=== PATIENT | female | born 1975 | race Caucasian/White ===

== ENCOUNTER 2021-05-14 16:06 | Emergency (ER) | payer OTHER ==
[~2021-05-14] VITALS: Ht 157.4 cm; Wt 61.2 kg
== END 2021-05-14 21:06 | disposition home or self-care (01) ==
LOC: ED 16:06
DX: G43.909 Migraine, unspecified, not intractable, without status migrainosus (principal); Z88.8 Allergy status to other drugs, medicaments and biological substances

== ENCOUNTER → 2021-07-15 | Outpatient (CLI) | payer OTHER | END | disposition home or self-care (01) | LOC: COVID19 16:12 | PROVIDERS: ATTEND Student in an Organized Health Care Education/Training Program | DX: U07.1 COVID-19 (principal) ==

== ENCOUNTER 2023-09-18 19:07 | Emergency (ER) | payer OTHER ==
[~2023-09-18] VITALS: Ht 157.4 cm; Wt 72.6 kg
[2023-09-18] MEDS ORDERED: BUPROPION XL300 MG PO (19:16)
[2023-09-18] MEDS ORDERED: ESCITALOPRAM OX10 MG PO (19:16)
[2023-09-18] MEDS ORDERED: EMGALITY120 MG/1 M SQ (19:26)
[2023-09-18] MEDS ORDERED: REGLAN10 M1 PO (21:17)
== END 2023-09-18 22:06 | disposition home or self-care (01) ==
LOC: ED 19:07
DX: G43.909 Migraine, unspecified, not intractable, without status migrainosus (principal); R11.0 Nausea; F32.A Depression, unspecified; Z88.8 Allergy status to other drugs, medicaments and biological substances

== ENCOUNTER 2023-11-18 15:48 | Emergency (ER) | payer OTHER, BC ==
[~2023-11-18] VITALS: Ht 157.4 cm; Wt 77.1 kg
[~2023-11-18 15:48] MED LIST: BUPROPION XL300 MG PO; EMGALITY120 MG/1 M SQ; ESCITALOPRAM OX10 MG PO; REGLAN10 M1 PO
[2023-11-18 17:00] LABS: BASO # 0.1 10*3/uL (0.0-0.1); BASO % 0.6 % (0.0-1.0); EOS # 0.6 10*3/uL (0.0-0.4); EOS % 5.7 % (1.0-4.0); HEMATOCRIT 42.4 % (37.0-47.0); LYMPH # 3.7 10*3/uL (1.3-4.4); LYMPH % 35.5 % (27.0-41.0); MEAN CORPUSCULAR HGB 30.3 pg (27.0-31.0); MEAN CORPUSCULAR HGB CONC 32.5 g/dl (33.0-37.0); MEAN PLATELET VOLUME 9.6 fl (9.6-12.3); MONO # 1.2 10*3/uL (0.1-1.0); MONO % 11.3 % (3.0-9.0); NEUT # 4.8 10*3/uL (2.3-7.9); NEUT % 46.6 % (47.0-73.0); PLATELET COUNT AUTOMATED 363 10*3/uL (130-400); RED BLOOD COUNT 4.56 10*6/uL (4.10-5.10); RED CELL DISTRI WIDTH 12.1 % (0-14.5); WHITE BLOOD COUNT 10.3 10*3/uL (4.8-10.8)
[2023-11-18] MEDS ORDERED: Ondansetron Hydrochloride 4 MG/2 ML VIAL IV ONE (17:05)
[2023-11-18 17:11] LABS: ACT PARTIAL THROMBO TIME 27.2 SECONDS (20.0-32.1)
[2023-11-18 17:30] LABS: ALKALINE PHOSPHATASE 64 U/L (46-116); BUN 14 mg/dl (9-23); CHLORIDE 108 mmol/L (98-107); LIPASE 33 U/L (12-53); SGPT/ALT 41 U/L (5-49); TOTAL PROTEIN 7.4 gm/dL (6.0-8.0)
== END 2023-11-19 00:15 | disposition home or self-care (01) ==
LOC: ED 15:48
PROVIDERS: Internal Medicine
DX: T38.3X1A Poisoning by insulin and oral hypoglycemic [antidiabetic] drugs, accidental (unintentional), initial encounter (principal); G43.909 Migraine, unspecified, not intractable, without status migrainosus; F32.A Depression, unspecified; E11.22 Type 2 diabetes mellitus with diabetic chronic kidney disease; N18.31 Chronic kidney disease, stage 3a; Z88.8 Allergy status to other drugs, medicaments and biological substances; Y92.89 Other specified places as the place of occurrence of the external cause